=== PATIENT | male | born 1965 | race Caucasian/White ===

== ENCOUNTER → 2023-09-03 13:53 | Outpatient (REF) | payer OTHER, SELFPAY | LOC: RAD 13:53 | PROVIDERS: ATTENDING PHYSICIAN Physician Assistant Medical | DX: B35.1 Tinea unguium (principal); M79.641 Pain in right hand; M25.522 Pain in left elbow | CPT/HCPCS: 73080; 73130 ==

== ENCOUNTER → 2023-11-21 09:42 | Outpatient (REF) | payer OTHER, SELFPAY | LOC: MRI 3T 09:42 | PROVIDERS: ATTENDING PHYSICIAN Physician Assistant Medical; FAMILY PHYSICIAN Family Medicine | DX: M25.522 Pain in left elbow (principal) | CPT/HCPCS: 73221 ==

== ENCOUNTER 2024-03-27 06:33 | Day surgery (SDC) | payer OTHER, SELFPAY ==
[2024-03-27 07:27] LABS: Glucose - Point of Care 136 mg/dl (70-99)
== END 2024-03-27 09:02 | disposition home or self-care (01) ==
LOC: GI 06:33
PROVIDERS: ATTENDING PHYSICIAN Student in an Organized Health Care Education/Training Program
DX: Z12.11 Encounter for screening for malignant neoplasm of colon (principal); D12.2 Benign neoplasm of ascending colon; D12.5 Benign neoplasm of sigmoid colon; K63.5 Polyp of colon; K57.30 Diverticulosis of large intestine without perforation or abscess without bleeding; K62.1 Rectal polyp; K64.0 First degree hemorrhoids; Z86.0101 Personal history of adenomatous and serrated colon polyps
CPT/HCPCS: 45385; 45380; 88305; 82962

== ENCOUNTER → 2024-12-23 10:39 | Outpatient (REF) | payer OTHER, SELFPAY | LOC: RAD 10:39 | PROVIDERS: ATTENDING PHYSICIAN Family Medicine | DX: M54.59 Other low back pain (principal) | CPT/HCPCS: 72110 ==

== ENCOUNTER → 2025-01-20 06:33 | Outpatient (REF) | payer OTHER, SELFPAY | LOC: MRI 3T 06:33 | PROVIDERS: ATTENDING PHYSICIAN Pain Medicine Interventional Pain Medicine; FAMILY PHYSICIAN Family Medicine | DX: M54.16 Radiculopathy, lumbar region (principal) | CPT/HCPCS: 72148 ==

== ENCOUNTER → 2025-01-27 08:56 | Outpatient (REF) | payer OTHER, SELFPAY ==
[2025-01-27 10:05] LABS: Blood Urea Nitrogen 17 mg/dl (9-20)
== END ==
LOC: REG 08:56
PROVIDERS: ATTENDING PHYSICIAN Pain Medicine Interventional Pain Medicine; FAMILY PHYSICIAN Family Medicine
DX: D49.2 Neoplasm of unspecified behavior of bone, soft tissue, and skin (principal)
CPT/HCPCS: 36415; 82565; 84520

== ENCOUNTER → 2025-03-02 07:20 | Outpatient (REF) | payer OTHER, SELFPAY | LOC: PAVMRI 07:20 | PROVIDERS: ATTENDING PHYSICIAN Pain Medicine Interventional Pain Medicine; FAMILY PHYSICIAN Family Medicine | DX: D49.2 Neoplasm of unspecified behavior of bone, soft tissue, and skin (principal) | CPT/HCPCS: 72158; A9575 ==